=== PATIENT | female | born 1965 | race Asian ===

== ENCOUNTER 2017-07-09 21:04 | Emergency (ER) | payer OTHER ==
[~2017-07-09 21:04] MED LIST: BACTRIM; BYSTOLIC5 MG PO; ZES10 PO
[2017-07-09 22:02] LABS: BASOPHIL % 0.4 % (0-2); PLATELET COUNT 246 x10^3mcL (130-400)
[2017-07-09 22:09] LABS: microscopic required? YES; urine erythrocyte TRACE (NEGATIVE)
[2017-07-09 22:52] LABS: CALCIUM 8.9 mg/dL (8.5-10.1); CARBON DIOXIDE 27.6 mmol/L (21-32); CHLORIDE SERUM 104 mmol/L (98-107); CREATININE SERUM 0.8 mg/dL (0.6-1.0); GFR1 > 60 mL/min; GLUCOSE SERUM 96 mg/dL (74-106); POTASSIUM SERUM 4.5 mmol/L (3.5-5.1); SODIUM SERUM 139 mmol/L (136-145)
[2017-07-09 22:56] LABS: ALBUMIN 4.1 g/dL (3.4-5.0); ALKALINE PHOSPHATASE 51 U/L (46-116); ALT/SGPT 19 U/L (14-59); AST/SGOT 15 U/L (15-37); BILIRUBIN TOTAL 0.2 mg/dL (0.20-1.00); LIPASE 155 IU/L (73-393); TOTAL PROTEIN, SERUM 7.7 g/dL (6.4-8.2)
[2017-07-09 23:30] VITALS: BP 140/100
== END 2017-07-09 23:30 | disposition home or self-care (01) ==
LOC: ED 21:04
PROVIDERS: Emergency Medicine
DX: K29.70 Gastritis, unspecified, without bleeding (principal); R00.8 Other abnormalities of heart beat; I10 Essential (primary) hypertension
CPT/HCPCS: J2405; J3490; J7030; Q0092